=== PATIENT | female | born 1955 | race Caucasian/White ===

== ENCOUNTER 2020-04-26 13:54 | Inpatient (IN) | payer MEDICARE, OTHER ==
[~2020-04-26] VITALS: Ht 162.6 cm; Wt 78.9 kg
[2020-04-26] MEDS ORDERED: LEVE1000 PO (14:13)
[2020-04-26] MEDS ORDERED: RISP1TAB27 PO (14:13)
[2020-04-26] MEDS ORDERED: OLANZAPINE 10 MG VIAL IM ONE ×2 (14:15→14:18)
--- NOTE | 2020-04-26 14:53 | NUR ---
Patient is calmer but refusing EKG still, MD notified. 1:1 [email or web address].
[2020-04-26] MEDS ORDERED: LORAZEPAM 2 MG/1 ML VIAL IM ONE (15:15)
[2020-04-26] MEDS ORDERED: LORAZEPAM 2 MG/1 ML VIAL ONE (15:16)
--- NOTE | 2020-04-26 16:21 | NUR ---
Patient refused EKG & chest x-ray still, Dr Acevedo & [facility] hospitalist notified. "Okay to admit to MHU." per Dr Acevedo. Patient will be admitted to MHU room 145-A , under the care of Dr. Diallo for psych needs [facility]. Belongings List completed. ER registration staff Ros notified to "roll-over" patient's status from ER patient to MHU admit.
--- NOTE | 2020-04-26 16:41 | NUR ---
EKG was not done, patient refusing still. Dr Acevedo notified.
[2020-04-26] MEDS ORDERED: ACETAMINOPHEN 325 MG TABLET PO PRN (17:00)
[2020-04-26] MEDS ORDERED: MAGNESIUM HYDROXIDE 30 ML LIQUID UDC PO PRN (17:00)
[2020-04-26] MEDS ORDERED: MAG HYDROX/AL HYDROX/SIMETH 30 ML LIQUID UDC PO PRN (17:00)
--- NOTE | 2020-04-26 17:00 | NUR ---
Gps/Jacquard Loom Carpet Weaver- Admitted a 65 years old female from ER . Alert, confused, refusing to answer question . Restless, during admission, fidgety will not stay still. Poorly groomed toenails , offered to be showered, refused. Per hold patient was found vandalizing neighbors' care , as well as kicking the police car as they come to assist her neighbor. Refusing vital signs, refusing ZULAY striking staff in the ER. During face to face encounter with patient, evaded all questions refusing to answer walking away from the staff during her admission. Orineted to unit settings, directed to her room.safety reviewed and emphasized. ,
[2020-04-26] MEDS ORDERED: TEMAZEPAM 7.5 MG CAPSULE PO PRN (17:30)
[2020-04-26 20:00] VITALS: BP 114/70
[2020-04-26] MEDS: levETIRAcetam 500 MG TABLET PO SCH (21:00)
[2020-04-26] MEDS: LORAZEPAM 0.5 MG TABLET PO PRN (23:39)
[2020-04-27] MEDS: levETIRAcetam 500 MG TABLET PO SCH ×2 (09:00→21:00)
--- NOTE | 2020-04-27 10:23 | NUR ---
Gps/Paid Search Manager- Pacing , wandering around, confused, refusing blood draws, refusing am meds. constant redirections provided
[2020-04-27] MEDS: risperiDONE-M 0.5 MG TAB.RAPDIS PO SCH ×2 (13:00→17:00)
[2020-04-27] MEDS: DIVALPROEX 250 MG TABLET.DR PO SCH ×2 (13:00→17:00)
[2020-04-28] MEDS: risperiDONE-M 0.5 MG TAB.RAPDIS PO SCH ×3 (08:08→17:00)
[2020-04-28] MEDS: levETIRAcetam 500 MG TABLET PO SCH ×2 (08:08→20:56)
[2020-04-28] MEDS: DIVALPROEX 250 MG TABLET.DR PO SCH ×3 (08:08→17:00)
--- NOTE | 2020-04-28 13:31 | NUR ---
Gps/Technical Document Writer- Offered to shower, refused, , reoffered routine meds. reviewed to patient, started to get angry, yelling at the staff stated" why dont you drink borax yourself "Noted patient continue to wander around, ref. to wear socks, walking barefooted, discouraged from walking around with no slipper, answered sarcastic .
--- NOTE | 2020-04-28 18:43 | NUR ---
Gps/Social Worker Palliative Care- Patient wearing laughlin socks this pm, wandering around wearing the same hospital gown from previous hospital , , refusing to shower , when re offered routine medications as ordered, pt. starting to get rude and nasty answer.Noted patient talking to herself, lashay .
--- NOTE | 2020-04-29 04:22 | NUR ---
Received patient earlier in the shift up at the nurses station asking for food. Standpipe Tender attempted to talk with the patient but was unable to engage in any meaningful conversation. Despite encouragement, patient refused all medications and refused to shower. Note that patient has refused to shower since admission 4 days ago. Skin is covered in dirt and very malodorous. At one point during the shift, this patient became argumentative with the staff and postured up to staff in a threatening way but was easily redirected. Monitoring this patient closely for safety, behavior escalation and medication compliance. Reinforcement needed. Not sleeping much so far this shift and up at the desk at 03:00 asking for coffee. No distress at this time, patient also refusing VS to be taken.
--- NOTE | 2020-04-29 06:08 | NUR ---
Patient slept only 2 hours last night. Multiple trips to the station requesting food and fluids. Noted to be sitting up in bed in the dark , awake , most of the time. Continues to be non compliant. Monitoring closely for behavioral outbursts and and staff encouraging patient to shower. Needs reinforcement.
[2020-04-29] MEDS: levETIRAcetam 500 MG TABLET PO SCH ×2 (09:00→21:00)
[2020-04-29] MEDS: DIVALPROEX 250 MG TABLET.DR PO SCH ×3 (09:00→16:42)
[2020-04-29] MEDS: risperiDONE-M 0.5 MG TAB.RAPDIS PO SCH ×3 (09:00→16:42)
--- NOTE | 2020-04-29 10:48 | NUR ---
Social Work Initial Discharge Plan: Patient currently resides at [address] [place] [address]; ([phone]). This engineering technical writer was unable to contact patients brother Elgin ([phone]) and number does not exist. highway maintenance worker will work with the MD, family, and treatment team to arrange proper discharge plan.
--- NOTE | 2020-04-29 10:49 | NUR ---
Social Work Family Contact: This marine underwriter was unable to contact patients brother Elgin ([phone]) and number does not exist.
--- NOTE | 2020-04-30 04:03 | NUR ---
Received patient earlier in the shift asking for food. Unwilling to take any medications , refusing shower day 5 and refusing VS. Patient gets angry easily and irritated when people open the door to the room. Housekeeping went in to clean another a bed and patient started yelling. Charge nurse went in the room and patient was holding up a fork to her. Charge nurse was able to get control over situation quickly. Patient has not slept most of the night and spends time pacing the room and the halls, making strange sounds. Patient is preoccupied with internal stimulation and is unable to have any meaningful conversation. Monitoring safety of staff and peers and monitoring for behavior escalation.
[2020-04-30] MEDS: DIVALPROEX 250 MG TABLET.DR PO SCH ×3 (08:14→17:00)
[2020-04-30] MEDS: risperiDONE-M 0.5 MG TAB.RAPDIS PO SCH ×2 (08:14→17:00)
[2020-04-30] MEDS: levETIRAcetam 500 MG TABLET PO SCH ×2 (08:14→21:00)
--- NOTE | 2020-04-30 10:35 | NUR ---
Social Work Individual Therapy: human service worker met with patient for brief counseling to address patient's aggressive and combative behavior. Patient is not cooperative with this senior copywriter and is unable to have meaningful conversation. Patient is verbally abusive and does not want to speak to this senior copywriter. This senior copywriter was unable to communicate with patient.
[2020-04-30] MEDS ORDERED: risperiDONE-M 0.5 MG TAB.RAPDIS PO SCH (13:00)
[2020-04-30] MEDS: OLANZAPINE 10 MG VIAL IM PRN (17:04)
--- NOTE | 2020-04-30 21:50 | NUR ---
GPS: RECEIVED PT LYING IN BED, A/OX2, PT ABLE TO VERBALIZED BASIC NEEDS WHEN SHE WANTS BUT WILL REFUSE TO TALK APPROPRIATELY WHEN STAFFS INTERACT WITH HER. PT UNABLE TO GIVE CLEAR ANSWER ON SI, HI, OR INTENT. DURING ROUTINE MED PASS PT REFUSED MED KEPPRA X3 ORDERED. PER ENDORSEMENT TO GIVE ZYPREXA IM IF PT REFUSED MEDICATIONS. CLARIFIED ORDER WITH CYN PRATHER THAT IM SHOT ONLY TO BE GIVEN WHEN PT REFUSED RISPERDAL NOT OTHER MEDS. WILL CONTINUE TO MONITOR AND Q/15MINS HEAD COUNT ONGOING.
--- NOTE | 2020-05-01 08:00 | NUR ---
RECEIVED PATIENT AOX1, PATIENT LABILE, DISORGANIZED, RESPONDING TO INTERNAL STIMULI, PATIENT REFUSING VS, SHOWER AND MEDICATION, PATIENT VERBALIZES THAT IT IS BORAX, PATIENT DELUSIONAL AND PARANOID, UNABLE TO CONTRACT SAFETY, EASILY IRRITABLE, PATIENT ON RIESE PROTOCOL,ADMINISTERED
[2020-05-01] MEDS: OLANZAPINE 10 MG VIAL IM PRN ×2 (08:46→22:30)
[2020-05-01] MEDS: risperiDONE-M 0.5 MG TAB.RAPDIS PO SCH ×2 (09:00→21:00)
[2020-05-01] MEDS: levETIRAcetam 500 MG TABLET PO SCH ×2 (09:00→21:00)
[2020-05-01] MEDS: DIVALPROEX 250 MG TABLET.DR PO SCH ×3 (09:00→16:51)
--- NOTE | 2020-05-01 14:31 | NUR ---
Social Work Individual Therapy: asphalt worker met with patient for brief counseling to address patient's aggressive and combative behavior. Patient was unable to have proper eye contact with this sports book writer and was unable to have a conversation. Patient was making random noises and was not paying attention to this sports book writer while this sports book writer was attempting to conduct brief therapy. This sports book writer will follow-up with patient.
--- NOTE | 2020-05-01 23:05 | NUR ---
ADIS/CAL IM Zyprexa administered as [facility] for [facility] refusal. Administered on right deltoid, no adverse reactions noted.
--- NOTE | 2020-05-02 06:49 | NUR ---
PT SLEPT 3 H. PT WITHDRAWN, ANXIOUS, PARANOID AND TALKING TO HERSELF. PT REFUSED HER KEPPRA AND RISPERDAL -M. PT GIVEN ZYPREXA IM 7.[address] ORDERED. PT CALM AFTER SEVERAL HOURS BUT STILL PT HAD THE SAME BEHAVIOR. PT HOSTILE, UNCOOPERATIVE, BIZAARE, AND AGGRESSIVE. Pt keppra and rispredal-m that pt refused was returned in the GPS pxysis return bin. SAFETY AND COMFORT PROVIDED. PT REFUSED CARE FROM STAFF EVEN VITAL SIGNS. WILL ENDORSE TO INCOMING NURSE.
--- NOTE | 2020-05-02 08:00 | NUR ---
GPS: received patient AOx1, pacing in the hallway, mumbling responding to internal stimuli, patient easily irritable, has tendency to hard supply in her room, patient non compliant with medication and on RIESE protocol, patient redirectablelabile and bizzare
[2020-05-02] MEDS: OLANZAPINE 10 MG VIAL IM PRN ×2 (08:27→21:17)
[2020-05-02] MEDS: DIVALPROEX 250 MG TABLET.DR PO SCH ×3 (09:00→16:33)
[2020-05-02] MEDS: risperiDONE-M 0.5 MG TAB.RAPDIS PO SCH ×2 (09:00→21:00)
[2020-05-02] MEDS: levETIRAcetam 500 MG TABLET PO SCH ×2 (09:00→21:00)
--- NOTE | 2020-05-02 18:11 | NUR ---
patient continuously pacing the hallway, needed redirection , patient easily irritable, no distress at this time
--- NOTE | 2020-05-02 22:39 | NUR ---
Received patient while walking in the hallway. No Compliant with medication. Refused all PM medications. On Riese Protocol. Zyprexa 10 mg IM injected. Was combative and aggressive during injection. Continue to monitor.
[2020-05-03] MEDS: DIVALPROEX 250 MG TABLET.DR PO SCH ×3 (09:00→17:00)
[2020-05-03] MEDS: risperiDONE-M 0.5 MG TAB.RAPDIS PO SCH ×3 (09:00→21:15)
[2020-05-03] MEDS: levETIRAcetam 500 MG TABLET PO SCH ×3 (09:00→21:15)
[2020-05-03] MEDS: OLANZAPINE 10 MG VIAL IM PRN ×2 (09:52→21:25)
--- NOTE | 2020-05-03 10:00 | NUR ---
Pt received resting in bed. Upon awakening, Pt refused PO medications. Pt on Riese, Zyprexa 10mg IM injection administered per protocol. Pt aggressive with staff, combative, attempting to hit, kick, and bite during injection. Pt states "medication is Lysol", paranoid and delusional behavior noted. Will continue to monitor.
--- NOTE | 2020-05-03 21:10 | NUR ---
Patient refused the medications.Explained benefits of taking meds and consequences of not taking it . patine get irritated and stated " I am not going to take any medication. Go away "
--- NOTE | 2020-05-03 21:54 | NUR ---
Patient on reise. Zyprexa IM administered as ordered with the assistance of the charge nurse and other nurses.
--- NOTE | 2020-05-04 06:49 | NUR ---
Patient awake,walking through the hallway. No aggressive behavior noted. Slept for 7.30 hrs.Refused to take shower in the morning.
[2020-05-04] MEDS: levETIRAcetam 500 MG TABLET PO SCH ×2 (08:45→21:00)
[2020-05-04] MEDS: risperiDONE-M 0.5 MG TAB.RAPDIS PO SCH ×2 (08:45→21:00)
[2020-05-04] MEDS: DIVALPROEX 250 MG TABLET.DR PO SCH ×3 (08:45→16:16)
[2020-05-04] MEDS: OLANZAPINE 10 MG VIAL IM PRN ×2 (09:17→21:39)
--- NOTE | 2020-05-04 17:53 | NUR ---
patient remained noncompliant with medication, offered patient po meds patient stated " get the f... out of room". patient ate meals, no other distress noted
--- NOTE | 2020-05-04 21:45 | NUR ---
Patient refused PO risperidone medication. Zyprexa IM was given per Riese order.
[2020-05-05 07:15] LABS: BASOPHILS # (AUTO) 0.1 K/uL (0.0-8.0); BASOPHILS % (AUTO) 0.6 % (0.0-2.0); EOSINOPHILS # (AUTO) 0.3 K/uL (0.0-0.7); EOSINOPHILS % (AUTO) 3.2 % (0.0-7.0); HEMOGLOBIN 13.7 g/dL (10.9-14.3); LYMPHOCYTES # (AUTO) 2.8 K/uL (20.0-40.0); LYMPHOCYTES % (AUTO) 34.2 % (20.5-51.5); MEAN CORPUSCULAR HEMOGLOBIN 31.7 uug (24.7-32.8); MEAN CORPUSCULAR HGB CONC 34 g/dL (32.3-35.6); MEAN CORPUSCULAR VOLUME 94.7 fL (75.5-95.3); MONOCYTES # (AUTO) 0.9 K/uL (2.0-10.0); MONOCYTES % (AUTO) 10.5 % (0.0-11.0); NEUTROPHILS # (AUTO) 4.3 K/uL (1.8-8.9); NEUTROPHILS % (AUTO) 51.5 % (38.5-71.5); PLATELET COUNT (AUTO) 299 K/uL (179-408); RED BLOOD CELL COUNT(AUTO) 4.32 MIL/uL (3.63-4.92); WHITE BLOOD COUNT (AUTO) 8.3 K/uL (3.8-11.8)
[2020-05-05 07:38] LABS: BILIRUBIN,TOTAL 0.3 mg/dL (0.2-1.0); CREATININE 0.9 mg/dL (0.6-1.3); POTASSIUM 5.2 mmol/L (3.5-5.1); TOTAL PROTEIN, SERUM 7.2 g/dL (6.4-8.2)
--- NOTE | 2020-05-05 08:00 | NUR ---
GPS: received patient AOx1, ambulatory, pacing in the hallway, patient easily irritable, aggresive and threatening staff, patient verbalizes " i dont want to see you in my room again" , patient responding to internal stimuli, mumbling, no distress however potential threat to other, patient refused morning medication " NO No im not taking any medication" patient said, patient aware of her RIESE protocol, gave Zyprexa 10mg IM per RIESE, patient resisting needed assistance from other staff , patient tolerated the medication, patient last seen pacing in the hallway, continuosly mumbling will continue monitor
[2020-05-05] MEDS: OLANZAPINE 10 MG VIAL IM PRN ×2 (08:10→22:02)
[2020-05-05] MEDS: risperiDONE-M 0.5 MG TAB.RAPDIS PO SCH ×2 (09:00→21:00)
[2020-05-05] MEDS: DIVALPROEX 250 MG TABLET.DR PO SCH ×3 (09:00→16:24)
[2020-05-05] MEDS: levETIRAcetam 500 MG TABLET PO SCH ×2 (09:00→21:00)
--- NOTE | 2020-05-05 18:15 | NUR ---
patient remain non compliant with oral medication , patient took afternoon naps, and been pacing the hallway when shes awake, patient no distress at this time
[2020-05-06] MEDS: OLANZAPINE 10 MG VIAL IM PRN (08:19)
[2020-05-06] MEDS: levETIRAcetam 500 MG TABLET PO SCH ×2 (09:00→20:42)
[2020-05-06] MEDS: DIVALPROEX 250 MG TABLET.DR PO SCH ×3 (09:00→16:33)
[2020-05-06] MEDS: risperiDONE-M 0.5 MG TAB.RAPDIS PO SCH (09:00)
--- NOTE | 2020-05-06 09:49 | NUR ---
GPS: received patient pacing in the hallway, responding to internal stimuli, patient easily irritable, asked if will medication, patient verbalizes" work it work it work it, [employer]" patient threatening staff, , patient non compliant with with medication and on RIESE
[2020-05-06] MEDS ORDERED: HALOPERIDOL LACTATE 5 MG/1 ML VIAL IM PRN (11:30)
[2020-05-06] MEDS ORDERED: HALOPERIDOL 5 MG TABLET PO SCH (13:00)
--- NOTE | 2020-05-06 15:02 | NUR ---
Social Work Individual Therapy: box storage worker met with patient for brief counseling to address patient's aggressive and combative behavior. Patient is not cooperative with this insurance underwriter sales and is unable to have meaningful conversation. Patient appeared to be irritable and mentally pre-occupied. Patient refused to talk to this insurance underwriter sales and walked away. This insurance underwriter sales was unable to provide brief counseling at this moment.
[2020-05-06] MEDS: HALOPERIDOL LACTATE 5 MG/1 ML VIAL IM PRN ×3 (16:22→21:19)
[2020-05-06] MEDS: HALOPERIDOL 5 MG TABLET PO SCH ×3 (16:33→21:00)
--- NOTE | 2020-05-06 18:24 | NUR ---
patient been calm , however still refused her oral medication, patient tolerated the IM medication, will continue monitor
--- NOTE | 2020-05-06 21:06 | NUR ---
Received pt walking in the hallway. No acute distress noted. No c/o pain/ discomfort. Pt is aggressive towards staff. Uncooperative with care. Pt refused her PO meds. Pt on reised and was given Haldol IM. Safety measures maintained. Will continue to monitor. Addendum: 05/06/20 at 2124 by Suhas Pelaez RN Pt also refused vital signs.
--- NOTE | 2020-05-06 21:19 | NUR ---
New order came in for new Haldol dosage. Haldol IM 5mg already given to pt prior to new changes.
[2020-05-07] MEDS: DIVALPROEX 250 MG TABLET.DR PO SCH ×3 (08:11→16:31)
[2020-05-07] MEDS: HALOPERIDOL 5 MG TABLET PO SCH ×3 (08:11→21:00)
[2020-05-07] MEDS: HALOPERIDOL LACTATE 5 MG/1 ML VIAL IM PRN ×3 (08:12→21:10)
[2020-05-07] MEDS: levETIRAcetam 500 MG TABLET PO SCH ×2 (08:12→21:00)
[2020-05-07] MEDS: ATORVASTATIN 20 MG TABLET PO SCH (21:00)
--- NOTE | 2020-05-08 06:33 | NUR ---
Pt slept 8.0 hrs. Refused shower in am.
[2020-05-08] MEDS: HALOPERIDOL 5 MG TABLET PO SCH ×3 (09:00→21:00)
[2020-05-08] MEDS: DIVALPROEX 250 MG TABLET.DR PO SCH ×3 (09:00→16:39)
[2020-05-08] MEDS: levETIRAcetam 500 MG TABLET PO SCH ×2 (09:00→21:00)
[2020-05-08] MEDS: HALOPERIDOL LACTATE 5 MG/1 ML VIAL IM PRN ×3 (10:24→22:13)
--- NOTE | 2020-05-08 20:00 | NUR ---
received patient in the day room. she is noted calm, but when this press writer introduced herself, she is unable to make eye contact. Poor historian, unable to have a meaningful conversation. Pt noted easily irritable, labile, affect is flat, mood is hostile. pt is reassured for her safety. Continue refusing V/S. safety and fall precaution in place. continue to monitor.
[2020-05-08] MEDS: ATORVASTATIN 20 MG TABLET PO SCH (21:00)
--- NOTE | 2020-05-08 22:15 | NUR ---
patient refused all her QHS medication. Pt is reise; therefor, Haldol 10 mg IM was given for refusal of PO Haldol. Pt. was noted verbally abuse with staff. Will continue to monitor.
[2020-05-09] MEDS: HALOPERIDOL 5 MG TABLET PO SCH ×3 (09:00→21:00)
[2020-05-09] MEDS: DIVALPROEX 250 MG TABLET.DR PO SCH ×3 (09:00→17:00)
[2020-05-09] MEDS: levETIRAcetam 500 MG TABLET PO SCH ×2 (09:00→21:00)
[2020-05-09] MEDS: HALOPERIDOL LACTATE 5 MG/1 ML VIAL IM PRN ×3 (10:57→21:47)
[2020-05-09] MEDS ORDERED: HALOPERIDOL DECANOATE 50 MG/1 ML AMPUL IM ONE (11:30)
--- NOTE | 2020-05-09 17:48 | NUR ---
Gps/Grease Man- While administering patient's haldol 7.5 mg IM as ordered, noted rashes on her coccygeal /sacrum area, denies itching.
--- NOTE | 2020-05-09 20:00 | NUR ---
received patient in her room in bed. she is noted sleeping but easily arousable. pt is unable to have a meaningful conversation with this video games storywriter. she is unable to make eye contact. continue easily irritable, labile, affect is flat, mood is hostile. pt is reassured for her safety. Continue refusing V/S. safety and fall precaution in place. continue to monitor.
[2020-05-09] MEDS: ATORVASTATIN 20 MG TABLET PO SCH (21:00)
--- NOTE | 2020-05-09 22:00 | NUR ---
Patient refused PO Haldol, Pt noted hard to redirect and verbally aggressive. She is reise. Therefore, Haldol 7.5mg IM was given. will continue to monitor.
[2020-05-10] MEDS: HALOPERIDOL 5 MG TABLET PO SCH ×3 (08:59→21:00)
[2020-05-10] MEDS: DIVALPROEX 250 MG TABLET.DR PO SCH ×3 (08:59→17:00)
[2020-05-10] MEDS: levETIRAcetam 500 MG TABLET PO SCH ×2 (08:59→21:00)
[2020-05-10] MEDS: HALOPERIDOL LACTATE 5 MG/1 ML VIAL IM PRN ×3 (09:00→20:49)
[2020-05-10] MEDS: ATORVASTATIN 20 MG TABLET PO SCH (21:00)
[2020-05-11] MEDS: DIVALPROEX 250 MG TABLET.DR PO SCH ×3 (08:43→17:00)
[2020-05-11] MEDS: HALOPERIDOL 5 MG TABLET PO SCH ×3 (08:43→21:00)
[2020-05-11] MEDS: levETIRAcetam 500 MG TABLET PO SCH ×2 (08:44→21:00)
[2020-05-11] MEDS: HALOPERIDOL LACTATE 5 MG/1 ML VIAL IM PRN ×2 (09:27→21:10)
[2020-05-11] MEDS: ATORVASTATIN 20 MG TABLET PO SCH (21:00)
--- NOTE | 2020-05-12 02:55 | NUR ---
RECEIVED PATIENT IN BED.UNABLE TO HAVE ANY GOOD INTERACTION WITH HER. NOTED IRRITABLE,FLAT AFFECT AND MOOD LABILE. REFUSED ALL ORAL MEDICATIONS AND SAID "I WILL TAKE THE SHOTS".I.M HALDOL 7.5MG WAS GIVEN. SAFETY AND FALL PRECAUTIONS IN PLACE.FREQUENT VISUAL CHECKS MADE ON HER FOR SAFETY. WILL CONTINUE TO MONITOR.
--- NOTE | 2020-05-12 06:49 | NUR ---
SLEPT FOR 7:30HOURS.
[2020-05-12] MEDS: levETIRAcetam 500 MG TABLET PO SCH ×2 (08:38→20:37)
[2020-05-12] MEDS: DIVALPROEX 250 MG TABLET.DR PO SCH ×3 (08:38→16:27)
[2020-05-12] MEDS: HALOPERIDOL 5 MG TABLET PO SCH ×3 (08:38→20:38)
[2020-05-12] MEDS: HALOPERIDOL LACTATE 5 MG/1 ML VIAL IM PRN (08:40)
--- NOTE | 2020-05-12 08:52 | NUR ---
Gps/Well Reactivator Operator- Patient calmer, redirectable, still refusing po. medication , informed needed to administer her haldol 7.5 mg IM, patient didnt hesitate, she rolled her sleeve and req. to have her med. administered to her left deltoid.
--- NOTE | 2020-05-12 13:22 | NUR ---
Gps/Spinning And Winding Supervisor-Showered with min assist, noted rashes to her sacrococcygeal area, left inner arm, and right ac, denies itching, kept skin dry. Noted patient increased interaction noted with staff, . Patient was able to take her depakote 250 mg. po, with min. prompting. claimed" i will take it this time but i will not take oral meds. next time" Reviewed with patient importance of her moral medications.
[2020-05-12 16:00] VITALS: BP 122/74
--- NOTE | 2020-05-12 16:59 | NUR ---
Gps/Rack Room Worker- Promised patient to be taken outside for 15 minutes (tiffany) and she needs to take her routine pm oral meds., had been cooperative, compliant with pm meds. Noted patient affect improved, smiling ,pleasant to the staff , making her simple needs known.
[2020-05-12] MEDS: ATORVASTATIN 20 MG TABLET PO SCH (20:37)
--- NOTE | 2020-05-13 02:13 | NUR ---
RECEIVED PATIENT IN HER ROOM. NOTED FLAT AFFECT AND LABILE.MOOD.INITIALLY REFUSED HER ORAL MEDICATIONS.REVIEWED WITH HER THE IMPORTANCE 0F TAKING MEDS. AFTER A WHILE SHE ASKED FOR COFFEE AND WE AGREED TO GIVE HER SHE TAKE HER MEDS. SHE WAS THEN COMPLIANT WITH HER MEDS.VISUAL CHECKS MADE ON HER FOR SAFETY.
--- NOTE | 2020-05-13 06:36 | NUR ---
SLEPT FOR 5:15 HOURS. WOKE UP EARLY PACING THE HALLWAY AND ACTIVITY ROOM REQUESTING TO LET OUT ON THE PATIO.AFTER EXPLANATIONS SHE AGREED TO WAIT TILL MORNING.
--- NOTE | 2020-05-13 07:30 | NUR ---
GPS: received patient AOx1, pacing in the hallway, patient greets the staff, in good mood, patient apears disorganized, steady with her ambulation, patient compliant with medication, will continue monitor, no distress at this time
[2020-05-13] MEDS: HALOPERIDOL 5 MG TABLET PO SCH ×3 (08:05→20:24)
[2020-05-13] MEDS: levETIRAcetam 500 MG TABLET PO SCH ×2 (08:05→20:26)
[2020-05-13] MEDS: DIVALPROEX 250 MG TABLET.DR PO SCH ×2 (08:05→12:07)
--- NOTE | 2020-05-13 15:24 | NUR ---
Social Work Family Contact: nutrition services worker received a phone call from patient's brother Elgin ([phone]) ([phone]) who stated that he would want pt back home upon discharge. He stated that he did not call the hospital because she has been through this treatment process and prefers to leave her alone for 15 days. This customs entry writer discussed treatment plan and discharge plan.
--- NOTE | 2020-05-13 15:25 | NUR ---
Social Work Coordination of Care: This consumer loan underwriter spoke with Norma goellead custodian who scheduled an apt for Patien will follow-up with primary doctor Dr. Moise at [address] [place] [address]; ([phone]) on May 20 at 11:30AM. Addendum: 05/13/20 at 1526 by NAN VALDIVIA Patient will follow up with (psychiatrist) at [facility] walk-ins for outpatient psychiatry intake evaluation at [address] [place] [address]; ([phone]).
--- NOTE | 2020-05-13 15:45 | NUR ---
Social Work Firearms Report: Roll Shop Supervisor completed and submitted a [facility] firearms report for 5150 grave disability certification. A copy of report has been placed in patient chart.
[2020-05-13 16:00] VITALS: BP 140/78
[2020-05-13] MEDS ORDERED: DIVALPROEX 500 MG TABLET.DR PO SCH (17:00)
[2020-05-13] MEDS: ATORVASTATIN 20 MG TABLET PO SCH (20:26)
[2020-05-13] MEDS: LORAZEPAM 0.5 MG TABLET PO PRN (20:26)
[2020-05-13 20:47] VITALS: BP 136/70
--- NOTE | 2020-05-14 03:29 | NUR ---
RECEIVED PATIENT IN HER ROOM AWAKE WITH AN OCCASIONAL SMILE.EAGER TO GO HOME.COMPLIANT WITH MEDICATIONS BUT WHEN I ASKED TO LOOK IN HER MOUTH SHE SAID"MY MOUTH IS MY MOUTH,WHAT BUSINESS DO YOU HAVE LOOKING IN IT." AFTER A WHILE SHE COMPLIED. WILL CONTINUE TO MONITOR.
--- NOTE | 2020-05-14 06:55 | NUR ---
SLEPT FOR 5:30HOURS
[2020-05-14 07:30] VITALS: BP 150/94
[2020-05-14] MEDS: levETIRAcetam 500 MG TABLET PO SCH (08:01)
--- NOTE | 2020-05-14 08:01 | NUR ---
Social Work Discharge Note: Patient will be discharged back home [address] [place] [address]; ([phone]). Patients brother Elgin ([phone]) ([phone]) will chart picker patient at 12PM. Patients brother Elgin is aware and agreeable with discharge plan. Patient is alert and oriented x2-3 and wants to go back home. Patient is aware and agreeable with discharge plan. Patient denies SI. Patient will follow-up with (primary doctor) Dr. Moise at [address] [place] [address]; ([phone]) on May 20 at 11:30AM. Patient will follow up with (psychiatrist) at [facility] walk-ins for outpatient psychiatry intake evaluation at [address] [place] [address]; ([phone]). Patient presents with euthymic mood and congruent affect.
[2020-05-14] MEDS: HALOPERIDOL 5 MG TABLET PO SCH (08:02)
[2020-05-14] MEDS: DIVALPROEX 250 MG TABLET.DR PO SCH (08:02)
[2020-05-14 08:16] LABS: BASOPHILS % (AUTO) 0.6 % (0.0-2.0); EOSINOPHILS # (AUTO) 0.2 K/uL (0.0-0.7); EOSINOPHILS % (AUTO) 3.5 % (0.0-7.0); HEMATOCRIT 39.2 % (31.2-41.9); HEMOGLOBIN 13.3 g/dL (10.9-14.3); LYMPHOCYTES # (AUTO) 1.4 K/uL (20.0-40.0); LYMPHOCYTES % (AUTO) 21.5 % (20.5-51.5); MEAN CORPUSCULAR HEMOGLOBIN 31.6 uug (24.7-32.8); MEAN CORPUSCULAR HGB CONC 34 g/dL (32.3-35.6); MONOCYTES # (AUTO) 0.5 K/uL (2.0-10.0); MONOCYTES % (AUTO) 7.9 % (0.0-11.0); NEUTROPHILS # (AUTO) 4.3 K/uL (1.8-8.9); NEUTROPHILS % (AUTO) 66.5 % (38.5-71.5); PLATELET COUNT (AUTO) 357 K/uL (179-408); RED BLOOD CELL COUNT(AUTO) 4.22 MIL/uL (3.63-4.92); WHITE BLOOD COUNT (AUTO) 6.4 K/uL (3.8-11.8)
[2020-05-14 08:30] LABS: BILIRUBIN,TOTAL 0.3 mg/dL (0.2-1.0); CREATININE 0.6 mg/dL (0.6-1.3); MAGNESIUM 2.2 mg/dL (1.8-2.4); POTASSIUM 4.4 mmol/L (3.5-5.1); TOTAL PROTEIN, SERUM 7.2 g/dL (6.4-8.2)
--- NOTE | 2020-05-14 10:38 | NUR ---
Social Work Family Contact: This magazine writer contacted patient's brother Elgin ([phone]) shared that patient received her injection on May 09 and would need another injection and advised to follow through with patient's psychiatry appointment.
--- NOTE | 2020-05-14 12:02 | NUR ---
Discharge Notes: patient AOx1-2, patient calm cooperativer, no distress, compliant with medication, patient DC to home with brother Elgin, home meds and instruction given, MD aware of the DC
== END 2020-05-14 12:04 | disposition home or self-care (01) | DRG 885 ==
LOC: ER 13:54 → GPS 16:25
PROVIDERS: ADMIT Psychiatry & Neurology Psychosomatic Medicine
DX: F25.0 Schizoaffective disorder, bipolar type (principal); G40.909 Epilepsy, unspecified, not intractable, without status epilepticus; Z91.19 Patient's noncompliance with other medical treatment and regimen; E78.5 Hyperlipidemia, unspecified; F29 Unspecified psychosis not due to a substance or known physiological condition
CPT/HCPCS: 36415; 71045; 80164; 83735; 85025; 93005; A4663; J1630; J1631; J2060; J2358; J3490